=== PATIENT | male | born 1980 | race Caucasian/White ===

== ENCOUNTER 2022-09-26 18:38 | Emergency (ER) | payer MEDICAID, SELFPAY ==
[~2022-09-26] VITALS: Ht 177.8 cm; Wt 82.0 kg
[2022-09-26 19:24] VITALS: BP 136/73
== END 2022-09-26 22:47 | disposition home or self-care (01) ==
LOC: ER 18:45
DX: R06.81 Apnea, not elsewhere classified (principal); T40.605A Adverse effect of unspecified narcotics, initial encounter; Z98.890 Other specified postprocedural states; Y92.9 Unspecified place or not applicable
CPT/HCPCS: 99283